=== PATIENT | male | born 1960 | race Caucasian/White ===

== ENCOUNTER 2023-09-07 11:19 | Emergency (ER) | payer OTHER, SELFPAY ==
[2023-09-07 11:22] VITALS: BP 189/98; PULSE 80; RESP 14; TEMP 36.5; O2SAT 99; BMI 29.5
--- NOTE | 2023-09-07 11:35 | DI.RAD.S_ITS ---
PROCEDURE: XR CHEST 1V INDICATIONS: chest pain TECHNIQUE: One view of the chest was acquired. COMPARISON: None. FINDINGS: Surgical changes and devices: None. Lungs and pleura: Lungs are clear. No pleural effusions or pneumothorax. Mediastinum: Mediastinal contours appear normal. Heart size is normal. Bones and chest wall: No suspicious bony lesions. Overlying soft tissues appear unremarkable. IMPRESSION: No acute cardiopulmonary abnormality is seen. Dictated by: Crys Lerma M.D. on 09/07/2023 at 12:03 Approved by: Crys Lerma M.D. on 09/07/2023 at 12:03
--- NOTE | 2023-09-07 11:35 | DI.CT.S_ITS ---
PROCEDURE: CT ANGIO HEAD AND NECK INDICATIONS: intermittent double vision. TECHNIQUE: After the administration of intravenous contrast, 1 mm thick sections acquired from the aortic arch through the [place]. 3-dimensional iggnwte-upxnjguzb-auxfbenemu (MIP) and/or volume rendering reformats were acquired of the central intracranial vasculature and neck separately. For radiation dose reduction, the following was used: automated exposure control, adjustment of mA and/or kV according to patient size. COMPARISON: [facility], CT, CT HEAD/BRAIN WO [facility], 09/07/2023, 12:36. FINDINGS: Image quality: Limited by bolus timing, with venous contamination. This examination is limited by involuntary motion artifact. BRAIN: CSF spaces: Ventricles are normal in size and shape. Basal cisterns are patent. No extra-axial fluid collections. Brain: No significant abnormality of the brain can be seen. Skull and face: Calvarium and facial bones appear intact, without suspicious lesions. Orbits appear normal. Sinuses: Along the inferior aspect of the right maxillary sinus, mucous retention cysts can be seen. Sinuses and mastoids are otherwise clear. HEAD CT ANGIOGRAPHY: Anterior circulation: Intracranial internal carotid arteries are normal in size and flow. The flow within the paired anterior cerebral arteries is normal and symmetric. The flow within the middle cerebral arteries is normal and symmetric. The anterior communicating artery is not well seen. No aneurysms are seen. Posterior circulation: Visualized portions of the vertebral arteries demonstrate normal caliber, and join to form a normal appearing basilar artery. Flow within the posterior cerebral arteries is normal and symmetric. No aneurysms are seen. NECK CT ANGIOGRAPHY: Carotid system: The great vessels demonstrate a conventional anatomy as they arise from the aortic arch. The origins of the common carotid arteries appear patent. The common carotid arteries demonstrate normal caliber and courses. The bifurcation regions demonstrate atherosclerotic irregularity and calcification, yet without a hemodynamically significant stenosis. The more distal internal carotid arteries demonstrate normal course and caliber. Posterior circulation: The origins of the vertebral arteries both appear widely patent. The more superior extracranial portions of both vertebral arteries also demonstrate normal courses and calibers. The right vertebral artery is dominant to the left. Soft tissues: Visualized neck soft tissues demonstrate no suspicious abnormalities. Bones: No suspicious bony lesions. Visualized cervical spine appears normally aligned. Moderate cervical spine degenerative change can be seen. IMPRESSION: No significant intracranial arterial abnormality is seen. No significant abnormality is seen within the arteries of the neck. Additional findings: Right maxillary sinus mucous retention cysts inferiorly Moderate cervical spine degenerative change Any quantitative measurements of stenosis were performed using NASCET criteria. Dictated by: Сергей Ramos M.D. on 09/07/2023 at 11:58 Approved by: Сергей Ramos M.D. on 09/07/2023 at 12:02
--- NOTE | 2023-09-07 11:35 | DI.CT.S_ITS ---
PROCEDURE: CT HEAD/BRAIN WO CON INDICATIONS: intermittent double vision. TECHNIQUE: Noncontrast 4.5 mm thick angled axial sections acquired from the foramen magnum to the vertex, with coronal and sagittal reformats. For radiation dose reduction, the following was used: automated exposure control, adjustment of mA and/or kV according to patient size. COMPARISON: [facility], CT, CT ANGIO HEAD AND NECK, 09/07/2023, 12:36. FINDINGS: Image quality: This examination is limited by involuntary motion artifact. CSF spaces: Basal cisterns are patent. No extra-axial fluid collections. The ventricles are symmetric in size and shape. Brain: No intracranial bleeds or masses. There is cerebral volume loss for age, with resultant ventricular and sulcal prominence. There are periventricular and deep white matter chronic small vessel ischemic changes. There is intracranial internal carotid artery atherosclerosis. Skull and face: Calvarium and visualized facial bones appear intact, without suspicious lesions. Sinuses: Visualized sinuses and mastoids are clear. IMPRESSION: Motion limited study, without a cause of the presenting history identified. Dictated by: Сергей Ramos M.D. on 09/07/2023 at 11:57 Approved by: Сергей Ramos M.D. on 09/07/2023 at 11:58
[2023-09-07 12:00] LABS: Add Manual Diff / Slide Review NO; Basophils Absolute Auto 0 /uL (0-100); Basophils Percent Auto 0.5 % (0-2); Eosinophils Absolute Auto 0 /uL (0-450); Eosinophils Percent Auto 0.4 % (2-4); Hematocrit 45.7 % (41-53); Hemoglobin 15.9 g/dL (13.5-17.5); Lymphocytes Absolute Auto 1400 /uL (1100-4500); Lymphocytes Percent Auto 18.6 % (25-40); Mean Corpuscular HGB Conc 34.8 % (30-36); Mean Corpuscular Hemoglobin 31.7 PG (26-34); Mean Corpuscular Volume 91.3 fL (80-100); Monocytes Absolute Auto 400 /uL (0-900); Monocytes Percent Auto 5.7 % (3-14); Neutrophils Absolute Auto 5500 /uL (1500-7000); Neutrophils Percent Auto 74.8 % (50-75); Platelet Count 164 X10^3/uL (150-400); Red Blood Cell Count 5.01 X10^6/uL (4.5-5.9); Red Cell Distribution Width 12.6 % (11.6-14.8); White Blood Cell Count 7.4 X10^3/uL (4.5-11.0)
[2023-09-07 12:08] LABS: Prothrombin Time 11.6 SECONDS (9.4-12.5)
[2023-09-07 12:11] LABS: PTT Partial Thromboplastin Tim 32 SECONDS (25.1-36.5)
--- NOTE | 2023-09-07 12:16 | ED.NEUROSD ---
HPI - Neuro Symptoms/Deficit General Chief Complaint: Neuro Symptoms/Deficit Stated Complaint: referred from dr sonja hood needs tests Time Seen by Provider: 09/07/23 11:53 Source: patient Mode of arrival: Ambulatory History of Present Illness HPI Narrative: patient here with . Sent here by dispatch lead office, Dr. Palumbo after evaluation in the office and and normal eye exam for double vision. Patient has had 3 episodes of brief double vision, clear vision since this past Monday. Last episode 48 hours ago. Denies any associated headache nausea vomiting numbness tingling or weakness slurred speech or facial droop. Patient does not wear corrective lenses other than reading glasses. he and state that when he does have a brief episode, it feels likeHis eye is moving inward. He does not know which 1. He did isolate each eye during the event and denies any double vision when eyes were isolated. Again these episodes last less than 4 seconds. Patient did have his eyes dilated at the clinic this morning.Patient is asymptomatic at this time. Fast exam is negative On Anticoagulants: No Related Data Previous Rx's Medication Instructions Recorded varenicline 0.5 mg (11)-1 mg (42) See Rx Instructions PO PER PKG DIR 09/13/23 tablets in a dose pack (Chantix #53 ea Starting Month Box) varenicline 1 mg tablet (Chantix 1 mg PO BID #60 tabs 09/13/23 Continuing Month Box) losartan 50 mg tablet 50 mg PO DAILY blood pressure #90 09/15/23 tabs Allergies Allergy/AdvReac Type Severity Reaction Status Date / Time Penicillins Allergy Severe Anaphylaxis Verified 09/13/23 14:54 Review of Systems Review of Systems Narrative: GENERAL: negative chills, fatigue, malaise, fever, sweats. HEENT: negative sinus pain, ear pain, sore throat, positive double vision RESPIRATORY: negative dyspnea, cough CARDIOVASCULAR: negative chest pain, palpitations GASTROINTESTINAL: negative nausea, vomiting, abdominal pain : negative dysuria, frequency, hematuria MUSCULOSKELETAL: negative muscle or bony pain SKIN: negative rash, skin lesions NEUROLOGIC: negative weakness, numbness, positivedouble vision ROS Unobtainable: All systems reviewed & are unremarkable except as noted in HPI and below Hematologic/Lymphatic On Anticoagulants: No Patient History Medical History (Updated 09/22/23 @ 00:01 by ) Tobacco dependence Benign essential HTN IFG (impaired fasting glucose) Social History Smoking Status: Current every day smoker Smoking Status: Current every day smoker tobacco type: cigarettes alcohol intake frequency: 0-2 drinks per day Substance Use Type: does not use Exam Narrative Exam Narrative: GENERAL: in no distress, not toxic not dyspneic HEAD: Normocephalic. EYES: Pupils equal round EOMI, no double vision currently. ENT: Mucous membranes moist. NECK: Trachea midline. CARDIOVASCULAR: Regular rate and rhythm RESPIRATORY: Clear to auscultation. Breath sounds equal bilaterally. No wheezes, rales, or rhonchi. GASTROINTESTINAL: Abdomen soft, non-tender EXTREMITIES: No gross deformities. BACK: No flank tenderness. NEURO: AOx4.Clear speech no facial droop. Light touch intact to bilateral face hands and legs. Strong equal pasteurizer helper bilaterally and ankle flexion hip flexion and knee flexion. Strong bilateral patellar reflexes. No pronator drift. [id number] intact bilaterally SKIN: Warm and dry PSYCH: Not anxious, is cooperative Initial Vital Signs Initial Vital Signs: Vital Signs Temperature 97.7 F 09/07/23 11:22 Pulse Rate 80 09/07/23 11:22 Respiratory Rate 14 09/07/23 11:22 Blood Pressure 189/98 H 09/07/23 11:22 Pulse Oximetry 99 09/07/23 11:22 Oxygen Delivery Method Room Air 09/07/23 11:22 Scores NIH Stroke Scale Level of Conciousness: Alert, keenly responsive Ask month/age: Answers both questions correctly. Open/close eyes, close hand: Performs both tasks correctly Best gaze horizontal: Normal Visual cano: No visual loss Facial palsy: Normal symetrical movement Left arm drift: No drift for full 10 sec Right arm drift: No drift for full 10 sec Left leg drift: No drift for full 5 sec Right leg drift: No drift for full 5 sec Limb ataxia: Absent Sensory on face/arms/legs: Normal, no sensory loss Best language: No aphasia, normal Dysarthria: Normal Extinction or inattention: No abnormality Total NIH Stroke scale score: 0 Course Orders Ordered: ED Orders 09/07/23 11:35 CT angio head and neck Stat CT head/brain wo con Stat XR chest 1V Stat EKG-12 Lead Stat 09/07/23 11:50 Complete Blood Count AUTO DIFF Stat Comprehensive Metabolic Panel Stat Lipase Stat Magnesium Stat PTT Partial Thromboplastin Yossi Stat Prothrombin Time INR Stat Troponin & CK Cardiac Panel Stat 09/07/23 12:15 MR head/brain wo con Stat Vital Signs Vital signs: Vital Signs - 8 hr 09/07/23 11:22 09/07/23 16:11 Temperature 97.7 F Pulse Rate 80 104 H Respiratory Rate 14 16 Blood Pressure 189/98 H 182/93 H Pulse Oximetry 99 96 Oxygen Delivery Method Room Air MDM - Neuro Symptoms/Deficit Lab Data 09/07/23 11:50 09/07/23 11:50 Labs: Lab Results 09/07/23 Range/Units 11:50 WBC 7.4 (4.5-11.0) X10^3/uL RBC 5.01 (4.5-5.9) X10^6/uL Hgb 15.9 (13.5-17.5) g/dL Hct 45.7 (41-53) % MCV 91.3 (80-100) fL MCH 31.7 (26-34) PG MCHC 34.8 (30-36) % RDW 12.6 (11.6-14.8) % Plt Count 164 (150-400) X10^3/uL Neut % (Auto) 74.8 (50-75) % Lymph % (Auto) 18.6 L (25-40) % [place] % (Auto) 5.7 (3-14) % Eos % (Auto) 0.4 L (2-4) % Baso % (Auto) 0.5 (0-2) % Neut # (Auto) 5500 (1476-2698) /uL Lymph # (Auto) 1400 (4486-4611) /uL [place] # (Auto) 400 (0-900) /uL Eos # (Auto) 0 (0-450) /uL Baso # (Auto) 0 (0-100) /uL PT 11.6 (9.4-12.5) SECONDS INR 1.0 (0.9-1.3) APTT 32 (25.1-36.5) SECONDS Sodium 140 (137-145) mmol/L Potassium 3.8 (3.4-5.1) mmol/L Chloride 109 H (98-107) mmol/L Carbon Dioxide 24 (22-32) mmol/L BUN 13 (9-20) mg/dL Creatinine 0.80 (0.66-1.25) mg/dL Estimated GFR > 60 (>60) mL/min BUN/Creatinine Ratio 16.3 (6-22) Glucose 112 H (80-110) mg/dL Calcium 9.0 (8.4-10.2) mg/dL Magnesium 1.8 (1.6-2.3) mg/dL Total Bilirubin 0.8 (0.2-1.3) mg/dL AST 30 (17-59) IU/L ALT 20 (<50) IU/L Alkaline Phosphatase 62 (38-126) U/L Total Creatine Kinase 121 (55-170) U/L Troponin I < 0.012 (0.01-0.034) ng/mL Total Protein 7.3 (6.3-8.2) g/dL Albumin 4.4 (3.5-5.0) g/dL Globulin 2.9 (1.7-4.1) g/dL Albumin/Globulin Ratio 1.5 (1.0-2.8) Lipase 138 (23-300) U/L Imaging Data CT scan - head: Radiologist's Impression: [address] [address] [address] Scan Report Signed Patient: Marco A Galo MR#: [id number] : 1960 Acct:[id number] Age/Sex: 63 / M Date of Service: 09/07/23 Loc: ED Accession Number: [id number] Procedure: CT head/brain wo con Ordering Provider: Yoshi Brewer MD PROCEDURE: CT HEAD/BRAIN WO CON INDICATIONS: intermittent double vision. TECHNIQUE: Noncontrast 4.5 mm thick angled axial sections acquired from the foramen magnum to the vertex, with coronal and sagittal reformats. For radiation dose reduction, the following was used: automated exposure control, adjustment of mA and/or kV according to patient size. COMPARISON: [facility], CT, CT ANGIO HEAD AND NECK, 09/07/2023, 12:36. FINDINGS: Image quality: This examination is limited by involuntary motion artifact. CSF spaces: Basal cisterns are patent. No extra-axial fluid collections. The ventricles are symmetric in size and shape. Brain: No intracranial bleeds or masses. There is cerebral volume loss for age, with resultant ventricular and sulcal prominence. There are periventricular and deep white matter chronic small vessel ischemic changes. There is intracranial internal carotid artery atherosclerosis. Skull and face: Calvarium and visualized facial bones appear intact, without suspicious lesions. Sinuses: Visualized sinuses and mastoids are clear. IMPRESSION: Motion limited study, without a cause of the presenting history identified. Dictated by: Сергей Ramos M.D. on 09/07/2023 at 11:57 Approved by: Сергей Ramos M.D. on 09/07/2023 at 11:58 CTA - brain/neck: Radiologist's Impression: [address] [address] [address] Scan Report Signed Patient: Marco A Galo MR#: [id number] : 1960 Acct:[id number] Age/Sex: 63 / M Date of Service: 09/07/23 Loc: ED Accession Number: [id number] Procedure: CT angio head and neck Ordering Provider: Yoshi Brewer MD PROCEDURE: CT ANGIO HEAD AND NECK INDICATIONS: intermittent double vision. TECHNIQUE: After the administration of intravenous contrast, 1 mm thick sections acquired from the aortic arch through the [place] of [place]. 3-dimensional yqhqaag-ygnikzmxd-ugprklzfvn (MIP) and/or volume rendering reformats were acquired of the central intracranial vasculature and neck separately. For radiation dose reduction, the following was used: automated exposure control, adjustment of mA and/or kV according to patient size. COMPARISON: [facility], CT, CT HEAD/BRAIN WO CON, 09/07/2023, 12:36. FINDINGS: Image quality: Limited by bolus timing, with venous contamination. This examination is limited by involuntary motion artifact. BRAIN: CSF spaces: Ventricles are normal in size and shape. Basal cisterns are patent. No extra-axial fluid collections. Brain: No significant abnormality of the brain can be seen. Skull and face: Calvarium and facial bones appear intact, without suspicious lesions. Orbits appear normal. Sinuses: Along the inferior aspect of the right maxillary sinus, mucous retention cysts can be seen. Sinuses and mastoids are otherwise clear. HEAD CT ANGIOGRAPHY: Anterior circulation: Intracranial internal carotid arteries are normal in size and flow. The flow within the paired anterior cerebral arteries is normal and symmetric. The flow within the middle cerebral arteries is normal and symmetric. The anterior communicating artery is not well seen. No aneurysms are seen. Posterior circulation: Visualized portions of the vertebral arteries demonstrate normal caliber, and join to form a normal appearing basilar artery. Flow within the posterior cerebral arteries is normal and symmetric. No aneurysms are seen. NECK CT ANGIOGRAPHY: Carotid system: The great vessels demonstrate a conventional anatomy as they arise from the aortic arch. The origins of the common carotid arteries appear patent. The common carotid arteries demonstrate normal caliber and courses. The bifurcation regions demonstrate atherosclerotic irregularity and calcification, yet without a hemodynamically significant stenosis. The more distal internal carotid arteries demonstrate normal course and caliber. Posterior circulation: The origins of the vertebral arteries both appear widely patent. The more superior extracranial portions of both vertebral arteries also demonstrate normal courses and calibers. The right vertebral artery is dominant to the left. Soft tissues: Visualized neck soft tissues demonstrate no suspicious abnormalities. Bones: No suspicious bony lesions. Visualized cervical spine appears normally aligned. Moderate cervical spine degenerative change can be seen. IMPRESSION: No significant intracranial arterial abnormality is seen. No significant abnormality is seen within the arteries of the neck. Additional findings: Right maxillary sinus mucous retention cysts inferiorly Moderate cervical spine degenerative change Any quantitative measurements of stenosis were performed using NASCET criteria. Dictated by: Сергей Ramos M.D. on 09/07/2023 at 11:58 Approved by: Сергей Ramos M.D. on 09/07/2023 at 12:02 Chest x-ray: Radiologist's Impression: [place] [address] XRay Report Signed Patient: Marco A Galo MR#: [id number] : 1960 Acct:[id number] Age/Sex: 63 / M Date of Service: 09/07/23 Loc: ED Accession Number: [id number] Procedure: XR chest 1V Ordering Provider: Yoshi Brewer MD PROCEDURE: XR CHEST 1V INDICATIONS: chest pain TECHNIQUE: One view of the chest was acquired. COMPARISON: None. FINDINGS: Surgical changes and devices: None. Lungs and pleura: Lungs are clear. No pleural effusions or pneumothorax. Mediastinum: Mediastinal contours appear normal. Heart size is normal. Bones and chest wall: No suspicious bony lesions. Overlying soft tissues appear unremarkable. IMPRESSION: No acute cardiopulmonary abnormality is seen. Dictated by: Crys Lerma M.D. on 09/07/2023 at 12:03 Approved by: Crys Lerma M.D. on 09/07/2023 at 12:03 MRI brain: Radiologist's Impression: [address] [address] Magnetic Resonance Report Signed Patient: Marco A Galo MR#: [id number] : 1960 Acct:[id number] Age/Sex: 63 / M Date of Service: 09/07/23 Loc: ED Accession Number: [id number] Procedure: MR head/brain wo con Ordering Provider: Yoshi Brewer MD PROCEDURE: MR HEAD/BRAIN WO CON INDICATIONS: tia/double vision TECHNIQUE: Noncontrast axial T1 spin echo, axial T2 fast spin echo, sagittal and axial FLAIR, coronal T2 fast spin echo, axial gradient echo, axial diffusion and ADC through the brain. COMPARISON: [facility], CT, CT HEAD/BRAIN WO CON, 09/07/2023, 12:36. [facility], CT, CT ANGIO HEAD AND NECK, 09/07/2023, 12:36. FINDINGS: Image quality: Excellent. CSF Spaces: Basal cisterns are patent. No extra-axial fluid collections. Ventricles are normal in size and shape. Brain: No intracranial masses or hemorrhage. There is mild, diffuse cerebral volume loss. There are minimal periventricular and subcortical white matter chronic microvascular ischemic changes. [place]/white matter interface is normal. Brainstem appears normal. Diffusion-weighted images demonstrate no acute infarct. No chronic ischemic insults. Normal intravascular flow voids are present. Skull and face: Calvarium has normal marrow signal. Orbits appear normal. Sinuses: Right maxillary sinus mucous retention cysts. mastoids are clear. IMPRESSION: No acute intracranial disease process. No areas of acute or chronic infarction. No intracranial hemorrhage. Dictated by: Alaina Gonzalez MD, PhD on 09/07/2023 at 15:33 Approved by: Alaina Gonzalez MD, PhD on 09/07/2023 at 15:36 MDM Narrative Medical decision making narrative: patient here with . Sent here by dispatch lead office, Dr. Palumbo after evaluation in the office and and normal eye exam for double vision. Patient has had 3 episodes of brief double vision, clear vision since this past Monday. Last episode 48 hours ago. Denies any associated headache nausea vomiting numbness tingling or weakness slurred speech or facial droop. Patient does not wear corrective lenses other than reading glasses. he and state that when he does have a brief episode, it feels likeHis eye is moving inward. He does not know which 1. He did isolate each eye during the event and denies any double vision when eyes were isolated. Again these episodes last less than 4 seconds. Patient did have his eyes dilated at the clinic this morning.Patient is asymptomatic at this time. Fast exam is negative After history and exam, no code stroke indicated this time. Last episode more than 48 hours ago. At this time CBC CMP EKG CT head CT angiogram head and neck normal saline MRI brain, Neurology consult after imaging MDM CC: double vision Complicating co-morbidities: none Data collected from: patient and Medical records reviewed: no recent visit for this complaint Differential considered: Includes but not limited to TIA stroke pituitary tumor Exam documented above, pertinent findings include: fast exam is negative Lab Test results independently reviewed as above. Pertinent findings: WBC 7.4 hemoglobin 15.9 INR 1.0 sodium 140 potassium 3.8 glucose 112 troponin less than 0.012 Independently reviewed EKG normal sinus rhythm rate 94 incomplete right bundle-branch block Imaging studies independently reviewed: CT head CT angiogram head and neck MRI brain no acute finding Consultations: 5:15 p.m., spoke with [facility] neurology Dr. Zimmerman, she does not feel this is a stroke. At this time does not require admission or observation. Patient to follow up with primary care and referral to Neurology for re-evaluation. , no new medications indicated at this time. Treatments: normal saline Re-evaluations: 4:00 p.m.. Reviewed results with patient and . At this time they are reassuring. No episodes or symptoms here. Awaiting call back from [facility] neurology for further instructions or suggestion Discussion: Appropriate for discharge home. Exam and laboratory studies imaging and CT scans and MRI are reassuring. NeurologyService was consulted. No observationAdmission needed at this time. Patient will call his medical insurance for in network providers and neurologist. Return precautions reviewed. No new medications indicated. Blood pressure noted he states he is nervous and likelyThat is why it is elevated. He will have this re-evaluated with his new doctor. . Return precautions reviewed. Patient and desire discharge home Diagnosis: double vision Discharge Plan Departure Patient Disposition: Home Clinical Impression: Double vision Instructions: DI for Double Vision Activity Restrictions/Additional Instructions: please call your medical insurance company to find in network providers to call for office appointment and follow up within a week. Call provided primary care referral phone number to establish family doctor. Call [phone]. At this time your laboratory studies and multiple radiograph imaging are reassuring. However you will need continued evaluationFor your double vision episodes. Return if worse if any questions or concerns . Neurology service was contacted king.When you do establish a family doctor, you will need referral to Neurology Services for re-evaluation. Prescriptions: No Action losartan 50 mg tablet 50 mg PO DAILY Qty: 90 3RF varenicline [Chantix Starting Month Box] 0.5 mg (11)- 1 mg (42) tablets,dose pack See Rx Instructions PO PER PKG DIR Qty: 53 0RF Rx Instructions: PO PER PKG DIR varenicline [Chantix Continuing Month Box] 1 mg tablet 1 mg PO BID Qty: 60 5RF Stand Alone Forms: Patient Portal/API
[2023-09-07 12:18] LABS: Alanine Aminotransferase 20 IU/L (<50); Albumin 4.4 g/dL (3.5-5.0); Albumin Globulin Ratio 1.5 (1.0-2.8); Alkaline Phosphatase 62 U/L (38-126); Aspartate Aminotransferase 30 IU/L (17-59); BUN Creatinine Ratio 16.3 (6-22); Bilirubin Total 0.8 mg/dL (0.2-1.3); Blood Urea Nitrogen 13 mg/dL (9-20); Carbon Dioxide 24 mmol/L (22-32); Chloride 109 mmol/L (98-107); Creatine Kinase 121 U/L (55-170); Estimated Glomerular Filt Rate > 60 mL/min (>60); Globulin 2.9 g/dL (1.7-4.1); Glucose 112 mg/dL (80-110); HEMOLYSIS < 15 (0-50); Lipase 138 U/L (23-300); Magnesium 1.8 mg/dL (1.6-2.3); Potassium 3.8 mmol/L (3.4-5.1); Sodium 140 mmol/L (137-145); Total Protein 7.3 g/dL (6.3-8.2)
[2023-09-07 12:29] LABS: Troponin I < 0.012 ng/mL (0.01-0.034)
[2023-09-07 16:11] VITALS: BP 182/93; PULSE 104; RESP 16; O2SAT 96
[2023-09-07 17:41] VITALS: BP 178/78; PULSE 78; RESP 14; O2SAT 99
== END 2023-09-07 17:42 | disposition home or self-care (01) ==
PROVIDERS: Emergency Provider Emergency Medicine
DX: H53.2 Diplopia (principal); R07.9 Chest pain, unspecified; R29.700 NIHSS score 0
CPT/HCPCS: 36415; 70450; 70496; 70498; 70551; 71045; 80053; 82550; 83690; 83735; 84484; 85025; 85610; 85730; 93005; 93010; 99284; 99285; Q9967

== ENCOUNTER → 2023-09-14 15:40 | Outpatient (CLI) | payer OTHER, SELFPAY ==
[2023-09-14 17:42] LABS: Cholesterol 213 mg/dL (140-199); HDL Cholesterol 50 mg/dL (40-60); LDL Cholesterol Calculated 127 mg/dL (<100); Triglycerides 182 mg/dL (35-150)
[2023-09-14 17:43] LABS: Hemoglobin A1C% w Est Avg Glu 5.5 % (4.0-6.0)
[2023-09-14 18:10] LABS: TSH w/ Reflex to FT4 1.94 uIU/mL (0.47-4.68)
[2023-09-14 18:12] LABS: Prostate Specific Antigen Scrn 0.715 ng/mL (0.1-4.0)
== END ==
PROVIDERS: PCP Family Medicine; Referring Provider Family Medicine; Visit Provider Family Medicine
DX: Z12.5 Encounter for screening for malignant neoplasm of prostate (principal); R73.01 Impaired fasting glucose; I10 Essential (primary) hypertension; H53.2 Diplopia; F17.200 Nicotine dependence, unspecified, uncomplicated
CPT/HCPCS: 36415; 80061; 83036; 84443; G0103

== ENCOUNTER → 2024-10-22 08:10 | Outpatient (CLI) | payer OTHER, SELFPAY ==
[2024-10-22 09:26] LABS: Hemoglobin A1C% w Est Avg Glu 5.2 % (4.0-6.0)
[2024-10-22 09:29] LABS: Alanine Aminotransferase 19 IU/L (<50); Albumin 4.4 g/dL (3.5-5.0); Albumin Globulin Ratio 2.1 (1.0-2.8); Alkaline Phosphatase 56 U/L (38-126); Aspartate Aminotransferase 30 IU/L (17-59); BUN Creatinine Ratio 18.9 (6-22); Bilirubin Total 0.8 mg/dL (0.2-1.3); Blood Urea Nitrogen 17 mg/dL (9-20); Calcium 9.2 mg/dL (8.4-10.2); Carbon Dioxide 27 mmol/L (22-32); Chloride 108 mmol/L (98-107); Cholesterol 211 mg/dL (140-199); Estimated Glomerular Filt Rate > 60 mL/min (>60); Globulin 2.1 g/dL (1.7-4.1); Glucose 119 mg/dL (80-110); HDL Cholesterol 56 mg/dL (40-60); HEMOLYSIS < 15 (0-50); LDL Cholesterol Calculated 135 mg/dL (<100); Potassium 4.4 mmol/L (3.4-5.1); Sodium 140 mmol/L (137-145); Total Protein 6.5 g/dL (6.3-8.2); Triglycerides 99 mg/dL (35-150)
[2024-10-22 09:58] LABS: Prostate Specific Antigen Scrn 0.778 ng/mL (0.1-4.0)
[2024-10-22 12:34] LABS: HIV 1 & 2 Ab/Ag 4th Gen Combo NEGATIVE (NEGATIVE); Hep C Virus Ab w/Reflex Quant NEGATIVE s/c (NEGATIVE)
== END ==
PROVIDERS: PCP Family Medicine; Referring Provider Family Medicine; Visit Provider Family Medicine
DX: I10 Essential (primary) hypertension (principal); F17.200 Nicotine dependence, unspecified, uncomplicated; E78.2 Mixed hyperlipidemia; R73.01 Impaired fasting glucose; Z12.5 Encounter for screening for malignant neoplasm of prostate
CPT/HCPCS: 36415; 80053; 80061; 83036; 86803; 87389; G0103